=== PATIENT | female | born 1955 | race Two or more races ===

== ENCOUNTER 2020-02-24 19:26 | Emergency (ER) | payer SELFPAY ==
[2020-02-24] MEDS ORDERED: NORMAL SALINE 1000 ML 1,000 ML IV ONE (20:25)
[2020-02-24] MEDS ORDERED: ACETAMINOPHEN 325 MG TABLET PO ONE (20:30)
--- NOTE | 2020-02-24 20:30 | ER Document Report ---
ED Medical Screen (RME) - General Chief Complaint: High Blood Sugar Stated Complaint: ABNORMAL LABS Time Seen by Provider: 02/24/20 20:24 Mode of Arrival: Ambulatory Information source: Patient Notes: 65-year-old female presented to ED for elevated blood sugar. She was sent by the urgent care because her blood sugar was 416 at the urgent care. Patient speaks only Swedish. I used [employer] dining car conductor [id number] for this interview. She states she was also diagnosed with a UTI and they called a prescription into [facility] but she did not go get that she instead came here because her blood sugar was elevated and they told her she needed further treatment for the elevated blood sugar. She states she has been using Azo [id number] for the pain. This is her first time to this hospital. She just moved to [place] 4 months ago. She does have a history of diabetes type 2 hypothyroid, gastritis, arthritis, fatty liver disease, cholesterol, and has not had any surgeries. She states she does not smoke drink or use any illicit drugs and she does live with her family. She did have a fever when she came over here 100.4 work. We will give her some Tylenol in the triage area. I have greeted and performed a rapid initial assessment of this patient. A comprehensive ED assessment and evaluation of the patient, analysis of test results and completion of medical decision making process will be conducted by an additional ED providers. Physical Exam - Vital signs Vitals: Temp Pulse Resp BP Pulse Ox 100.4 F 108 H 18 121/87 H 99 02/24/20 20:00 02/24/20 20:00 02/24/20 20:00 02/24/20 20:00 02/24/20 20:00 Course - Vital Signs Vital signs: Temp Pulse Resp BP Pulse Ox 100.4 F 108 H 18 121/87 H 99 02/24/20 20:00 02/24/20 20:00 02/24/20 20:00 02/24/20 20:00 02/24/20 20:00
[2020-02-24 21:23] LABS: ABSOLUTE EOSINOPHILS # (AUTO) 0.1 10^3/uL (0.0-0.6); ABSOLUTE LYMPHOCYTES (AUTO) 1.8 10^3/uL (0.5-4.7); ABSOLUTE MONOCYTES (AUTO) 0.9 10^3/uL (0.1-1.4); BASOPHILS % (AUTO) 0.3 % (0-2); EOSINOPHILS % (AUTO) 0.7 % (0-6); HEMATOCRIT 33.4 % (36.0-47.0); HEMOGLOBIN 11.5 g/dL (12.0-15.5); LYMPHOCYTES % (AUTO) 20.4 % (13-45); MEAN CORPUSCULAR HEMOGLOBIN 29.8 pg (27.0-33.4); MEAN CORPUSCULAR HGB CONC 34.3 g/dL (32.0-36.0); MEAN CORPUSCULAR VOLUME 87 fl (80-97); PLATELET COUNT 187 10^3/uL (150-450); RED BLOOD COUNT 3.85 10^6/uL (3.72-5.28); RED CELL DISTRIBUTION WIDTH 14.7 % (11.5-14.0); SEGMENTED NEUTROPHILS % (AUTO) 68.6 % (42-78); TOTAL CELLS COUNTED % (AUTO) 100 %; WHITE BLOOD COUNT 8.7 10^3/uL (4.0-10.5)
[2020-02-24 21:29] LABS: VENOUS BLOOD BASE EXCESS -0.1 mmol/L; VENOUS BLOOD HCO3 22.8 mmol/L (20-32); VENOUS BLOOD PCO2 31.2 mmHg (35-63); VENOUS BLOOD PH 7.48 (7.30-7.42)
[2020-02-24 21:35] LABS: APPEARANCE,URINE CLEAR; BILIRUBIN,URINE NEGATIVE (NEGATIVE); COLOR,URINE YELLOW; GLUCOSE, URINE >=500 mg/dL (NEGATIVE); KETONES,URINE NEGATIVE (NEGATIVE); PROTEIN,URINE 30 mg/dL (NEGATIVE); URINE SPECIFIC GRAVITY 1.023; UROBILINOGEN,URINE NEGATIVE mg/dL (<2.0)
[2020-02-24 22:53] LABS: ALBUMIN 4.1 g/dL (3.5-5.0); ALKALINE PHOSPHATASE 100 U/L (38-126); ANION GAP 10 (5-19); ASPARTATE AMINO TRANSFERASE 25 U/L (14-36); BILIRUBIN,DIRECT 0.2 mg/dL (0.0-0.4); BILIRUBIN,TOTAL 0.7 mg/dL (0.2-1.3); BLOOD UREA NITROGEN 9 mg/dL (7-20); CALCIUM 9.3 mg/dL (8.4-10.2); CARBON DIOXIDE 24 mmol/L (22-30); CHLORIDE 98 mmol/L (98-107); GLUCOSE 357 mg/dL (75-110)
--- NOTE | 2020-02-25 03:31 | ER Document Report ---
ED General - General Chief Complaint: Urinary Problem Stated Complaint: ABNORMAL LABS Time Seen by Provider: 02/24/20 20:24 Primary Care Provider: [facility] [Provider Group] - Follow up in 1 week CARTER KC MD [ACTIVE STAFF] - Follow up in 1 week Mode of Arrival: Ambulatory Notes: Patient is a 65-year-old female that comes emergency department for concerns about high blood sugar and urinary frequency. Patient has had symptoms for the past 5 days but she also has been out of her medications for the past 5 days including glimepiride and Metformin. She does moved here, she is staying with family, she needs local primary care per patient and family, she is requesting scripts. Blood glucose was 416 at local urgent care this evening and she was referred to the emergency department. Patient does admit to feeling feverish for the past 2 days, denies headache, chest pain, cough, abdominal pain, flank pain, shortness of breath, or even dysuria (just the urinary frequency). Denies COVID-19 exposure or recent testing. Past medical history includes type 2 diabetes, hypertension, hyperlipidemia, GERD, and she is on gabapentin normally. She denies smoking, alcohol, recreational drugs. She denies current complaints other than feeling thirsty. - Related Data Allergies/Adverse Reactions: ciprofloxacin [From Cipro] Allergy (Verified 02/24/20 20:33) Home Medications: metformin 1000 mg bid Past Medical History - General Information source: Patient - Social History Smoking Status: Never Smoker Frequency of alcohol use: None Drug Abuse: None Lives with: Family Family History: Reviewed & Not Pertinent - Past Medical History Cardiac Medical History: Reports: Hx Hypercholesterolemia, Hx Hypertension Endocrine Medical History: Reports: Hx Diabetes Mellitus Type 2 GI Medical History: Reports: Hx Gastroesophageal Reflux Disease Review of Systems - Review of Systems Constitutional: See HPI Genitourinary: See HPI Physical Exam - Vital signs Vitals: Temp Pulse Resp BP Pulse Ox 100.4 F 108 H 18 121/87 H 99 02/24/20 20:00 02/24/20 20:00 02/24/20 20:00 02/24/20 20:00 02/24/20 20:00 - Notes Notes: GENERAL: Alert, interacts well. No acute distress. HEAD: Normocephalic, atraumatic. EYES: Pupils equal, round, and reactive to light. Extraocular movements intact. ENT: Oral mucosa moist, tongue midline. Oropharynx unremarkable. Airway patent. NECK: Full range of motion. Supple. Trachea midline. No lymphadenopathy. LUNGS: Clear to auscultation bilaterally, no wheezes, rales, or rhonchi. No respiratory distress. Non-tender chest wall. HEART: Regular rate and rhythm. No murmur ABDOMEN: Soft, non-tender. Non-distended. EXTREMITIES: Moves all 4 extremities spontaneously. No edema, normal radial and dorsalis pedis pulses bilaterally. No cyanosis. BACK: no cervical, thoracic, lumbar midline tenderness. No saddle anesthesia, normal distal neurovascular exam. Moves all extremities in full range of motion. NEUROLOGICAL: Alert and oriented x3. Normal speech. Cranial nerves II through XII grossly intact. Strength 5/5 in all extremities. PSYCH: Normal affect, normal mood. SKIN: Warm, dry, normal turgor. No rashes or lesions noted. Course - Re-evaluation Re-evalutation: Patient's biggest concern is refilling her medications. I had to redirect her several times in trying to figure out why she came in with a low-grade fever. She states she feels fine, her lungs are clear, abdomen soft, no headache, no nuchal rigidity, physical exam is unremarkable. Urine is not noted to be infected although she does have dehydration. Patient does have hyperglycemia but she is out of her diabetic medications and there is no acidosis. CBC unremarkable. Chest x-ray does not show pneumonia. I discussed with patient. She is requesting medication refills and discharge. Cultures were drawn from blood, urine culture placed, patient does agree to COVID-19 testing and I discussed quarantine. Patient given IV fluids, I provided her with medications, referred her to primary care, and discussed return precautions. Patient states appreciation and agreement. Stable and well-appearing at time of discharge. Andrew hardy is going home with family who states they will watch her closely. - Vital Signs Vital signs: Temp Pulse Resp BP Pulse Ox 100.4 F 108 H 18 121/87 H 99 02/24/20 20:00 02/24/20 20:00 02/24/20 20:00 02/24/20 20:00 02/24/20 20:00 - Laboratory Result Diagrams: 02/24/20 21:03 02/24/20 21:03 Laboratory results interpreted by me: 02/24/20 02/24/20 02/24/20 21:00 21:03 21:03 Hgb 11.5 L Hct 33.4 L RDW 14.7 H VBG pH VBG pCO2 Sodium 132.2 L Glucose 357 H POC Glucose 284 H Urine Protein Urine Glucose (UA) 02/24/20 02/24/20 21:03 21:03 Hgb Hct RDW VBG pH 7.48 H VBG pCO2 31.2 L Sodium Glucose POC Glucose Urine Protein 30 H Urine Glucose (UA) >=500 H Discharge - Discharge Clinical Impression: Hyperglycemia, Has run out of medications, Person under investigation for COVID-19 Fever Qualifiers: Fever type: unspecified Qualified Code(s): R50.9 - Fever, unspecified Condition: Stable Disposition: HOME, SELF-CARE Instructions: COVID-19 Guidance for Persons Under Investigation Additional Instructions: The cause of your fever is not certain at this time. You have been hydrated, please take your regular medications as prescribed. You have been tested for COVID-19, you will be contacted with those results, see additional details on the form. We have blood and urine cultures and you will be contacted for any concerning results. Please follow close with primary care for additional management and for medication refills. Come back if you are worse including difficulty breathing, chest pain, vomiting, abdominal pain, severe headache, or something is not right. Prescriptions: Losartan Potassium [Cozaar 25 mg Tablet] 25 mg PO DAILY #30 tablet Glimepiride 1 mg PO DAILY 30 Days #30 tablet Metformin HCl [Glucophage] 1,000 mg PO BID 30 Days #60 tablet Gabapentin [Neurontin 100 mg Capsule] 100 mg PO Q12 #60 capsule Omeprazole 20 mg PO DAILY #30 tablet. Pravastatin Sodium 40 mg PO DAILY #30 tablet Referrals: CARTER KC MD [ACTIVE STAFF] - Follow up in 1 week [facility] [Provider Group] - Follow up in 1 week
--- NOTE | 2020-02-25 03:57 | RADIOLOGY REPORT (SQ) ---
CHEST X-RAY 1 VIEW on 02/25/2020 at 3:34 AM CLINICAL INDICATION: Fever COMPARISON: None FINDINGS: The lungs are clear. There is slight elevation of the right hemidiaphragm. Cardiac, hilar and mediastinal contours are within normal limits. Pulmonary vascularity is within normal limits. No bony abnormality is noted. IMPRESSION: No active disease.
[2020-02-25 07:30] VITALS: BP 143/88
== END 2020-02-25 07:10 | disposition home or self-care (01) ==
LOC: ER 19:26
DX: E11.65 Type 2 diabetes mellitus with hyperglycemia (principal); R50.9 Fever, unspecified; I10 Essential (primary) hypertension; Z76.0 Encounter for issue of repeat prescription; Z88.1 Allergy status to other antibiotic agents; Z20.828 Contact with and (suspected) exposure to other viral communicable diseases
CPT/HCPCS: 99284; 96360; 96361; 36415; 87040; 87086; 82962; 85025; 87635; 80053; 81001; 82803; 71045; J7030; C9803